=== PATIENT | male | born 1995 | race Caucasian/White ===

== ENCOUNTER 2021-04-08 15:57 | Emergency (ER) | payer BC ==
[2021-04-08 16:07] VITALS: BP 115/79; PULSE 90; TEMP 99.6; BMI 20.9
== END 2021-04-08 17:26 | disposition home or self-care (01) ==
LOC: FER 15:57
PROC: 2W38X1Z Immobilization of Right Upper Extremity using Splint (ICD-10-PCS; principal; 2021-04-08)
DX: S59.901A Unspecified injury of right elbow, initial encounter (principal); W01.0XXA Fall on same level from slipping, tripping and stumbling without subsequent striking against object, initial encounter; Y93.64 Activity, baseball
CPT/HCPCS: 73070-TC-RT-FY; 99283-25

== ENCOUNTER 2023-02-12 12:36 | Emergency (ER) | payer BC ==
[2023-02-12 12:43] VITALS: BP 108/74; PULSE 91; RESP 16; TEMP 99.1; BMI 23.0
== END 2023-02-12 13:26 | disposition home or self-care (01) ==
LOC: FER 12:36
DX: K64.9 Unspecified hemorrhoids (principal)
CPT/HCPCS: 99282-25